=== PATIENT | male | born 1940 | race Caucasian/White ===

== ENCOUNTER 2018-07-29 08:51 | Day surgery (SDC) | payer MEDICARE ==
[2018-07-29] MEDS ORDERED: LACTATED RINGERS 1,000 ML IV ONE (09:31)
[2018-07-29] MEDS ORDERED: fentaNYL 100 MCG/2 ML VIAL IVP ONE (10:24)
[2018-07-29] MEDS ORDERED: MIDAZOLAM 2 MG/2 ML VIAL IVP ONE (10:24)
[2018-07-29 11:28] VITALS: BP 118/75
== END 2018-07-29 08:52 | disposition home or self-care (01) ==
LOC: SDS 08:51
PROVIDERS: ATTEND Internal Medicine
PROC: 0DBH8ZZ Excision of Cecum, Via Natural or Artificial Opening Endoscopic (ICD-10-PCS; principal; 2018-07-29 10:00)
DX: Z12.11 Encounter for screening for malignant neoplasm of colon (principal); D12.0 Benign neoplasm of cecum; K64.8 Other hemorrhoids; D50.9 Iron deficiency anemia, unspecified; K21.9 Gastro-esophageal reflux disease without esophagitis
CPT/HCPCS: 45385; J7120

== ENCOUNTER 2023-05-03 14:26 | Emergency (ER) | payer MEDICARE ==
[2023-05-03 14:42] VITALS: O2SAT 97
[2023-05-03 15:22] LABS: BASOPHILS % (AUTO) 0.5 %; EOSINOPHILS # (AUTO) 0.1 10^3/uL (0.0-0.7); EOSINOPHILS % (AUTO) 1.9 %; HCT - HEMATOCRIT 43.6 % (42.0-52.0); LYMPHOCYTES # (AUTO) 1.7 10^3/uL (1.5-3.5); LYMPHOCYTES % (AUTO) 26.7 %; MEAN CORPUSCULAR HEMOGLOBIN 31.7 pg (27.0-31.0); MEAN CORPUSCULAR HGB CONC 32.1 g/dL (32.0-36.0); MEAN CORPUSCULAR VOLUME 98.6 fL (80.0-94.0); MEAN PLATELET VOLUME 10.5 fL (7.4-11.4); MONOCYTES # (AUTO) 0.6 10^3/uL (0.0-1.0); MONOCYTES % (AUTO) 9.9 %; NEUTROPHILS % (AUTO) 60.8 %; PLT - PLATELET COUNT 180 10^3/uL (130-450); RED BLOOD COUNT 4.42 10^6/uL (4.70-6.10); RED CELL DISTRIBUTION WIDTH 11.9 % (12.0-15.0); WHITE BLOOD COUNT 6.5 x10^3/uL (4.8-10.8)
[2023-05-03 15:33] LABS: ALBUMIN 4.2 g/dL (3.2-5.5); ALBUMIN/GLOBULIN RATIO 1.3 (1.0-2.2); BILIRUBIN,TOTAL 0.6 mg/dL (0.2-1.0); CALCIUM 9.2 mg/dL (8.5-10.3); CREATININE 0.8 mg/dL (0.6-1.3); POTASSIUM 4.2 mmol/L (3.5-4.5); TOTAL PROTEIN 7.4 g/dL (6.4-8.9)
--- NOTE | 2023-05-03 16:27 | ED Physician Documentation ---
History of Present Illness - Stated complaint Stated Complaint: GI - Chief complaint Chief Complaint: General - History obtained from History obtained from: Patient, Family - Additonal information Additional information: 82-year-old male presents stating he feels like he thinks he is constipated. He has not had a bowel movement in a couple of days and when he "sticks his fingers back there he feels a ball of stool in the rectum." He has not had any nausea or vomiting, continues to tolerate p.o. but cannot have a bowel movement. He states he has been trying to and will strain some but nothing comes out. He started taking an eiye-cip-spquqer medication, and thinks he may have been Dulcolax tablets, without relief in his symptoms. He stays active, tries to eat a varied diet, has had no issues with his constipation in the past. He does have a history of a cholecystectomy as well as a appendectomy, no other abdominal surgeries. He has not had a fever or chills, no chest pain or dif ficulty breathing, no abdominal pain, no nausea vomiting or diarrhea. Review of Systems Constitutional: reports: Reviewed and negative Cardiac: reports: Reviewed and negative Respiratory: reports: Reviewed and negative GI: reports: Constipation. denies: Abdominal Pain, Abdominal Swelling, Nausea, Vomiting, Diarrhea, Hematemesis, Bloody / black stool : reports: Reviewed and negative Skin: reports: Reviewed and negative Musculoskeletal: reports: Reviewed and negative Neurologic: reports: Reviewed and negative PD PAST MEDICAL HISTORY - Past Medical History Past Medical History: Yes Cardiovascular: None Respiratory: None Endocrine/Autoimmune: None GI: GERD : Other HEENT: None Psych: None Musculoskeletal: None Derm: None - Past Surgical History General: Cholecystectomy, Appendectomy, Colonoscopy, EGD Ortho: Other - Present Medications Home Medications: Ambulatory Orders Medication Instructions Recorded Confirmed Multivitamin [Multivitamins] 1 each PO DAILY 12/31/12 02/24/23 Esomeprazole Magnesium 20 mg PO DAILY 07/28/18 02/24/23 polyethylene glycoL 3350(BULK) 17 gm PO DAILY PRN #1 each 05/03/23 [Miralax] - Allergies Allergies/Adverse Reactions: Allergies Allergy/AdvReac Type Severity Reaction Status Date / Time No Known Drug Allergies Allergy Verified 05/03/23 14:36 - Social History Smoking Status: Never smoker PD ED PE NORMAL - Vitals Vital signs reviewed: Yes - General General: Alert and oriented X 3, No acute distress, Well developed/nourished - HEENT HEENT: Atraumatic, Pharynx benign - Cardiac Cardiac: RRR, No murmur - Respiratory Respiratory: No respiratory distress, Clear bilaterally - Abdomen Abdomen: Normal bowel sounds, Soft, Non tender, Non distended - Derm Derm: Normal color, Warm and dry, No rash - Neuro Neuro: Alert and oriented X 3 (forgetful) Eye Opening: Spontaneous Motor: Obeys Commands Verbal: Oriented GCS Score: 15 - Psych Psych: Normal mood, Normal affect Results - Vitals Vitals: Vital Signs - 24 hr 05/03/23 14:36 Temperature 36.3 C L Heart Rate 57 L Respiratory 16 Rate Blood Pressure 129/73 O2 Saturation 97 Oxygen O2 Source Room air - Labs Labs: Laboratory Tests 05/03/23 05/03/23 05/03/23 15:15 15:15 17:30 WBC 6.5 RBC 4.42 L Hgb 14.0 Hct 43.6 MCV 98.6 H MCH 31.7 H MCHC 32.1 RDW 11.9 L Plt Count 180 MPV 10.5 Neut # (Auto) 4.0 Lymph # (Auto) 1.7 [place] # (Auto) 0.6 Eos # (Auto) 0.1 Baso # (Auto) 0.0 Absolute Nucleated RBC 0.00 Nucleated RBC % 0.0 Sodium 136 Potassium 4.2 Chloride 104 Carbon Dioxide 28 Anion Gap 4.0 L BUN 16 Creatinine 0.8 Estimated GFR (MDRD) 92 Glucose 98 Calcium 9.2 Total Bilirubin 0.6 AST 16 ALT 12 Alkaline Phosphatase 94 Total Protein 7.4 Albumin 4.2 Globulin 3.2 Albumin/Globulin Ratio 1.3 Lipase 17 Urine Color LIGHT YELLOW Urine Clarity CLEAR Urine pH 5.5 Ur Specific [place] >=1.030 H Urine Protein NEGATIVE Urine Glucose (UA) NEGATIVE Urine Ketones NEGATIVE Urine Occult Blood NEGATIVE Urine Nitrite NEGATIVE Urine Bilirubin NEGATIVE Urine Urobilinogen 0.2 (NORMAL) Ur Leukocyte Esterase NEGATIVE Ur Microscopic Review NOT INDICATED Urine Culture Comments NOT INDICATED - Rads (name of study) No standard instances Relevant Findings:: Final report received PD Medical Decision Making - ED course Complexity details: reviewed results, considered differential, d/w patient, d/w family ED course: 82-year-old male presents with concern for possible constipation. He has not had a bowel movement a couple days and feels like he needs to but cannot go. He has not had any abdominal pain, no nausea vomiting no diarrhea, no fever or chills, no urinary symptoms. His physical exam here is reassuring, he has a soft abdomen with active bowel tones and no tenderness that is reproducible on exam. We did obtain labs including CBC, CMP and urinalysis which were negative, abdominal x-ray reveals moderate stool, no sign of bowel obstruction and I have low suspicion for obstruction at this time given patient's reassuring physical exam. I recommended we treat for constipation, I gave patient options including medication alone, enema and medication or digital disimpaction medication. Patient like to have enema here and we will discharge him home on MiraLAX which she should take daily along with the duplex he has at home, and he should increase his oral fluid intake, remain active and anticipate improvement next few days. If he has worsening symptoms at any point time advised to return to the ER otherwise he can follow-up with his primary doctor. Departure - Departure Disposition: , Self Care Clinical Impression: Constipation Qualifiers: Constipation type: slow transit constipation Qualified Code(s): K59.01 - Slow transit constipation Condition: Good Instructions: ED Constipation Prescriptions: polyethylene glycoL 3350(BULK) [Miralax] 17 gm PO DAILY PRN #1 each PRN Reason: Constipation Comments: Your labs and xray are stable. I recommend that you continue the ducolax that you are taking at home and add miralax daily. [facility] [place]. Increase your oral fluid consumption as your labs would indicate that you are mildly dehydrated. Continue physical activity as this can help as well as a varied diet. Follow-up with your primary doctor as needed if ongoing symptoms or return to the ER if worsening. You may need a colonoscopy if no improvement in your symptoms. Forms: PCP List
--- NOTE | 2023-05-03 17:30 | XRAY Report ---
PROCEDURE: Abdomen 1 View X-Ray INDICATIONS: constipation TECHNIQUE: 1 view of the abdomen were acquired. COMPARISON: None. FINDINGS: Surgical changes and devices: Surgical clips noted in the right upper quadrant Bowel: No pneumoperitoneum. The bowel gas pattern is normal. Moderate fecal debris in the left colo n. Soft tissues: No masses; visualized solid organ contours appear normal in size. No suspicious abdom inal calcifications. Bones: No suspicious bony abnormalities. Degenerative changes noted in the lower lumbar spine. Surg ical clips present in the pelvis IMPRESSION: Moderate to fecal debris in the left colon. No obstruction. Reviewed by: Goldy Carrillo MD on 05/03/2023 4:28 PM AKBLANCA Approved by: Goldy Carrillo MD on 05/03/2023 4:28 PM AKDT Station ID: [id number]
[2023-05-03 17:41] LABS: BILIRUBIN,URINE NEGATIVE (NEGATIVE); GLUCOSE, URINE (UA) NEGATIVE (NEGATIVE); KETONES,URINE (UA) NEGATIVE (NEGATIVE); LEUKOCYTE ESTERASE, URINE NEGATIVE (NEGATIVE); NITRITE,URINE NEGATIVE (NEGATIVE); OCCULT BLOOD,URINE NEGATIVE (NEGATIVE); PH,URINE 5.5 PH (5.0-7.5); PROTEIN,URINE NEGATIVE (NEGATIVE); UROBILINOGEN,URINE 0.2 (NORMAL) E.U./dL (NORMAL)
[2023-05-03 17:44] LABS: CLARITY,URINE CLEAR (CLEAR)
[2023-05-03] MEDS ORDERED: MINERAL OIL ENEMA 133 ML BOTTLE RC STA (17:52)
[2023-05-03 18:27] VITALS: BP 142/75
== END 2023-05-03 18:25 | disposition home or self-care (01) ==
LOC: ED 14:26
DX: K59.01 Slow transit constipation (principal)
CPT/HCPCS: 36415; 74018; 80053; 81003; 83690; 85025; 99284; A9270; 81001; 87086

== ENCOUNTER 2023-08-29 18:20 | Emergency (ER) | payer MEDICARE ==
[2023-08-29 18:32] VITALS: O2SAT 98
--- NOTE | 2023-08-29 18:32 | ED Physician Documentation ---
PD HPI HEAD INJURY - Stated complaint Stated Complaint: FALL/FACE LAC - Chief complaint Chief Complaint: Trauma Hd/Nk - History obtained from History obtained from: Patient - Additional information Additional information: 82-year-old gentleman with unknown tetanus status presents with his . He had a trip and fall at a park landing face first on asphalt and has a laceration on the right side of his face. No loss of consciousness or headache. PD PAST MEDICAL HISTORY - Past Medical History Past Medical History: Yes Cardiovascular: None Respiratory: None Endocrine/Autoimmune: None GI: GERD : Other HEENT: None Psych: None Musculoskeletal: None Derm: None - Past Surgical History Past Surgical History: Yes General: Cholecystectomy, Appendectomy, Colonoscopy, EGD Ortho: Other - Present Medications Home Medications: Ambulatory Orders Medication Instructions Recorded Confirmed Multivitamin [Multivitamins] 1 each PO DAILY 12/31/12 02/24/23 Esomeprazole Magnesium 20 mg PO DAILY 07/28/18 02/24/23 polyethylene glycoL 3350(BULK) 17 gm PO DAILY PRN #1 each 05/03/23 [Miralax] - Allergies Allergies/Adverse Reactions: Allergies Allergy/AdvReac Type Severity Reaction Status Date / Time No Known Drug Allergies Allergy Verified 08/29/23 18:23 - Social History Does the pt smoke?: No Smoking Status: Never smoker Does the pt drink ETOH?: No Does the pt have substance abuse?: No - Immunizations Immunizations are current?: Yes PD ED PE NORMAL - Vitals Vital signs reviewed: Yes - General General: Alert and oriented X 3, No acute distress - HEENT HEENT: PERRL, EOMI, Other (There is a laceration on the right forehead and in the right eyebrow, the bridge of the nose and just below the nose on the upper lip on the right side.) - Neck Neck: Supple, no meningeal sign, No bony TTP - Neuro Neuro: Alert and oriented X 3 Eye Opening: Spontaneous Motor: Obeys Commands Verbal: Oriented GCS Score: 15 Results - Vitals Vitals: Vital Signs - 24 hr 08/29/23 18:23 Temperature 36.8 C Heart Rate 66 Respiratory 16 Rate Blood Pressure 170/60 H O2 Saturation 98 Oxygen O2 Source Room air - Rads (name of study) CT Head Relevant Findings:: Final report received (CT of the head without intracranial trauma. Radiologist noted a "radius bone fracture" I think she means nasal bone.), EMP independent interpretation of test Procedures - Laceration (location) forehead/face Length in cm: 5 Wound type: Linear (There were multiple small wounds, 1 on the bridge of the nose, 1 on the philtrum, 1 on the eyebrow, on the right and then a larger deeper wound on the right forehead.) Anesthesia: Lidocaine 1%, With bicarb Wound preparation: Irrigated copiously NS Skin layer closure: Nylon (The wound on the forehead was closed with 3 x 5-0 nylon sutures.), Dermabond (The remainder of the wounds) Other: Patient tolerated well, No complications, Neurovascular intact, Tetanus booster given Departure - Departure Clinical Impression: Head injury, Facial laceration, Ground-level fall, Fracture of nasal bone Condition: Good Record reviewed to determine appropriate education?: Yes Instructions: ED Fx Nasal Conf W X Ray, ED Laceration Facial Skin Glue, ED Laceration Facial Sutr Tape Comments: You are seen tonight after a fall, multiple lacerations and abrasions on the face were closed, the largest on the forehead with 3 sutures. We see on the CAT scan that you have a broken nose and he also have a nodule in your right th yroid which you should mention to your primary care physician for outpatient follow-up. There is no neck fracture, skull fracture, or brain injury. Come back for any signs of infection which would include: Redness, swelling, drainage, increased pain, or fevers. You can wash it soap and water. Keep it covered and moist with bacitracin ointment which is available over the counter; avoid neosporin. Follow-up with your physician in About 7 days for suture removal. Forms: PCP List
[2023-08-29] MEDS: TETANUS/DIPHTHERIA/PERTUSSIS 0.5 ML SYRINGE IM ONE (18:40)
[2023-08-29] MEDS: BUFFERED LIDOCAINE 10 ML SYRINGE SUBQ STA (18:42)
--- NOTE | 2023-08-29 19:53 | CT Report ---
PROCEDURE: Head WO INDICATIONS: head inj TECHNIQUE: Noncontrast 4.5 mm thick angled axial sections acquired from the foramen magnum to the vertex. For r adiation dose reduction, the following was used: automated exposure control, adjustment of mA and/or kV according to patient size. COMPARISON: None. FINDINGS: Image quality: Excellent. CSF spaces: Basal cisterns are patent. No extra-axial fluid collections. Ventricles are normal in size and shape. Brain: No midline shift. No intracranial masses or hemorrhage. There is cerebral cortical volume l oss for age. Mild bilateral periventricular white matter hypodensity. [place]-white matter interface is normal. Skull and face: Mild right frontal soft tissue swelling. No radiodense debris or lacerations. No und erlying fracture. Probably tiny impacted right nasal bone fracture. Sinuses: Visualized sinuses and mastoids are clear. IMPRESSION: No CT evidence of acute intracranial trauma. Small right frontal soft tissue contusion without underlying fracture. Probable minimally impacted radius bone fracture. Reviewed by: Megha Chaudhry MD on 08/29/2023 7:51 PM PST Approved by: Megha Chaudhry MD on 08/29/2023 7:51 PM PST Station ID: [id number]
--- NOTE | 2023-08-29 20:08 | CT Report ---
PROCEDURE: Cervical Spine WO INDICATIONS: head inj TECHNIQUE: Noncontrast 3 mm thick sections acquired from the skull base to the T4 level. Sagittal and coronal r eformats were then constructed. For radiation dose reduction, the following was used: automated exp osure control, adjustment of mA and/or kV according to patient size. COMPARISON: None. FINDINGS: Image quality: Excellent. Bones: No fractures or dislocations. Degenerative kyphosis with the apex at the C4-5 level. There i s moderate degenerative disc height loss from C4 through C7 with anterior and posterior endplate spur s. Visualized superior ribs are intact. Soft tissues: Prevertebral soft tissues are normal in thickness. No paravertebral hematomas. No ap ical pneumothoraces. Heterogeneous thyroid with 1.5 cm right lower pole nodule. IMPRESSION: No acute, displaced fracture or traumatic subluxation. Moderate multilevel degenerative changes. Right thyroid nodule for which ultrasound could be considered on an outpatient basis. Reviewed by: Megha Chaudhry MD on 08/29/2023 8:07 PM PST Approved by: Megha Chaudhry MD on 08/29/2023 8:07 PM PST Station ID: [id number]
[2023-08-29 20:22] VITALS: BP 135/88
== END 2023-08-29 20:19 | disposition home or self-care (01) ==
LOC: ED 18:20
DX: S09.90XA Unspecified injury of head, initial encounter (principal); S02.2XXA Fracture of nasal bones, initial encounter for closed fracture; S01.81XA Laceration without foreign body of other part of head, initial encounter; S01.21XA Laceration without foreign body of nose, initial encounter; S01.111A Laceration without foreign body of right eyelid and periocular area, initial encounter; W01.0XXA Fall on same level from slipping, tripping and stumbling without subsequent striking against object, initial encounter; Y92.830 Public park as the place of occurrence of the external cause; Z79.899 Other long term (current) drug therapy; Z23 Encounter for immunization
CPT/HCPCS: 12013; 90471; 99283; 99284